=== PATIENT | male | born 1970 | race Caucasian/White ===

== ENCOUNTER → 2024-05-12 | Outpatient (CLI) | payer OTHER, SELFPAY ==
--- NOTE | 2024-05-12 16:00 | RAD_ITS ---
PROCEDURE: ANKLE MIN 3 VIEWS 05/12/2024 REASON FOR EXAM: PAIN TECHNIQUE: 3 views of the left ankle COMPARISON: None FINDINGS: No acute fracture or dislocation. Normal alignment. Mortise appears intact. No effusion. Soft tissues are unremarkable. RAD/Ankle min 3 Views IMPRESSION: NO ACUTE FRACTURE OR DISLOCATION. Reading Location: [facility]
--- NOTE | 2024-05-12 16:00 | RAD_ITS ---
PROCEDURE: FOOT MIN 3 VIEWS 05/12/2024 REASON FOR EXAM: FOOT INJURY TECHNIQUE: 3 view(s) of left foot COMPARISON: None. FINDINGS: LEFT FOOT: Acute transverse fracture at the mid 5th metatarsal with very mild appearing angulation. No dislocation. Bipartite appearing 1st metatarsal medial sesamoid can be seen with sequela of fracture or developmental variant. Exuberant bone formation along the dorsal aspect of the head of the 1st metatarsal on the lateral view may be sequela of remote injury. Forefoot soft tissue swelling. Hallux valgus deformity. Enthesophyte formation Achilles surface of the calcaneus. RAD/Foot min 3 Views IMPRESSION: Acute transverse fracture at the mid 5th metatarsal with very mild appearing an gulation. No dislocation. Additional findings as above. Reading Location: [id number]
== END | disposition home or self-care (01) ==
PROVIDERS: Referring Provider Physician Assistant; Visit Provider Physician Assistant
DX: M25.572 Pain in left ankle and joints of left foot (principal); S99.922A Unspecified injury of left foot, initial encounter; X58.XXXA Exposure to other specified factors, initial encounter
CPT/HCPCS: 73610; 73630